=== PATIENT | female | born 1970 | race American Indian/Alaskan Native ===

== ENCOUNTER 2018-11-30 04:38 | Emergency (ER) | payer MEDICAID ==
[2018-11-30] MEDS ORDERED: HumuLIN R IV ONE (06:21)
[2018-11-30] MEDS ORDERED: TORADOL IV ONE (06:22)
[2018-11-30] MEDS ORDERED: BENADRYL IV ONE (06:22)
[2018-11-30] MEDS ORDERED: REGLAN IV ONE (06:22)
--- NOTE | 2018-11-30 06:42 | Emergency Department Report ---
ED Headache HPI - General Chief Complaint: Headache Stated Complaint: HEAD AND EYE PAIN LITTLE CHEST PAIN Time Seen by Provider: 11/30/18 06:10 Source: patient Exam Limitations: no limitations - History of Present Illness Initial Comments: 48-year-old female with a past history of morbid obesity, diabetes, GERD, hypertension, arthritis, and elevated cholesterol complaint headache and "a little chest pain". Patient has had a frontal throbbing headache with pain behind both eyes since yesterday morning. Pain is constant but fluctuates in intensity. Pain is increased with sitting straight up decreased with lying flat nausea without vomiting. Denies light sensitivity, blurred vision, focal weakness, focal numbness, or neck pain. No recent head injuries reported. No family history of aneurysms. Patient also states she has a little chest pain only mentioning that she was in the hospital. It is similar to her chronic intermittent chest pain which she is unable to describe to me currently. She is also very vague as to when chest pain occur only seen if she did not have chest pain yesterday. She is unable to characterize pain stating "I don't know" she is unable to tell me how long she's had the pain stating again "I don't know". Pt does have a pmd Allergies/Adverse Reactions: Allergies No Known Allergies Allergy (Verified 02/22/14 23:58) Home Medications: Ambulatory Orders Allopurinol [Zyloprim] 300 mg PO BIDAC 02/22/14 Cyclobenzaprine [Flexeril 10 MG TAB] 1 tab PO TID PRN 02/22/14 metFORMIN [Glucophage] 1,000 mg PO BID #60 tablet 02/23/14 Carvedilol [Coreg] 6.25 mg PO BID 11/22/16 Furosemide [Lasix TAB] 40 mg PO Q12H 11/22/16 amLODIPine [Norvasc] 10 mg PO QDAY 11/22/16 Aspirin EC 81 mg PO QDAY #30 tablet. 11/23/16 AtorvaSTATin [Lipitor] 40 mg PO QHS #30 tab 11/23/16 Famotidine [Pepcid] 20 mg PO BID tablet 11/23/16 Insulin NPH/Regular [NovoLIN 70/30] 10 unit SUB-Q BIDDIAB #1 vial 11/23/16 HYDROcodone/APAP 5-325 [[place] 5-325 mg TAB] 1 tab PO Q6H PRN #15 tablet 11/30/18 Ibuprofen [Motrin] 800 mg PO Q8HR PRN #30 tablet 11/30/18 ED Review of Systems ROS: Stated complaint: HEAD AND EYE PAIN LITTLE CHEST PAIN Other details as noted in HPI Comment: All other systems reviewed and negative ED Past Medical Hx - Past Medical History Hx Hypertension: Yes Hx Diabetes: Yes Hx GERD: Yes Hx Arthritis: Yes Additional medical history: obesity. Elevated cholesterol - Social History Smoking Status: Never Smoker Substance Use Type: None - Medications Home Medications: Home Medications Medication Instructions Recorded Confirmed Last Taken Type Allopurinol [Zyloprim] 300 mg PO BIDAC 02/22/14 11/22/16 Unknown History Cyclobenzaprine [Flexeril 10 MG 1 tab PO TID PRN 02/22/14 11/22/16 Unknown History TAB] metFORMIN [Glucophage] 1,000 mg PO BID #60 tablet 02/23/14 11/22/16 Unknown Rx Carvedilol [Coreg] 6.25 mg PO BID 11/22/16 11/22/16 Unknown History Furosemide [Lasix TAB] 40 mg PO Q12H 11/22/16 11/22/16 Unknown History amLODIPine [Norvasc] 10 mg PO QDAY 11/22/16 11/22/16 Unknown History Aspirin EC 81 mg PO QDAY #30 tablet. 11/23/16 Unknown Rx AtorvaSTATin [Lipitor] 40 mg PO QHS #30 tab 11/23/16 Unknown Rx Famotidine [Pepcid] 20 mg PO BID tablet 11/23/16 Unknown Rx Insulin NPH/Regular [NovoLIN 70/30] 10 unit SUB-Q BIDDIAB #1 vial 11/23/16 Unknown Rx HYDROcodone/APAP 5-325 [[place] 1 tab PO Q6H PRN #15 tablet 11/30/18 Unknown Rx 5-325 mg TAB] Ibuprofen [Motrin] 800 mg PO Q8HR PRN #30 tablet 11/30/18 Unknown Rx ED Physical Exam - General Limitations: No Limitations - Other Other exam information: General: No limitations, patient is alert in no acute distress Head exam: Atraumatic, normocephalic Eyes exam: Normal appearance, pupils equal reactive to light, extraocular movements intact ENT: Moist mucous membrane, normal oropharynx Neck exam: Normal inspection, full range of motion, no meningismus nontender Respiratory exam: Clear to auscultation bilateral, no wheezes, rales, crackles Cardiovascular: Normal rate and rhythm, normal heart sounds Abdomen: Soft, nondistended, and nontender, with normal bowel sounds, no rebound, or guarding Extremity: Full range of motion normal inspection no deformity Back: Normal Inspection, full range of motion, no tenderness Neurologic: Alert, oriented x3, cranial nerves intact, no motor or sensory deficit, [id number] function intact Psychiatric: normal affect, normal mood Skin: Warm, dry, intact ED Course Vital Signs 11/30/18 11/30/18 11/30/18 04:55 05:43 06:30 Temperature 97.9 F 98.3 F Pulse Rate 94 H 91 H Respiratory 18 15 Rate Blood Pressure 144/63 158/84 Blood Pressure 156/68 [Left] O2 Sat by Pulse 97 96 88 Oximetry 11/30/18 11/30/18 11/30/18 07:08 09:35 12:00 Temperature 98.3 F 98.2 F Pulse Rate 96 H 86 86 Respiratory 16 16 16 Rate Blood Pressure Blood Pressure 180/84 151/75 157/61 [Left] O2 Sat by Pulse 100 95 98 Oximetry - Reevaluation(s) Reevaluation #1: 11/30/18 08:27 Initially CAT scan of the head was ordered since patient does not have a history of headaches. Patient is pain-free after Benadryl, Toradol, and Reglan. She has no neurologic deficits. I have a low suspicion for acute life-threatening headache. I discussed with patient that we are unable to do a CAT scan of the head here to her body habitus. I discussed options of discharge with meds since symptoms improved with migraine cocktail versus transfer for CT. Since patient is feeling better without neural deficits is comfortable with going home and outpatient neuro follow-up and declines transfer for ct at this time. She will be observed while receiving IV hydration and repeat troponin and discharge if symptoms and trop remained stable. 11/30/18 10:08 pt states the headache is now coming back. Edil was called earlier and states I cant send pt for ct scan to return to the ED. Will attempt [place] [facility] Additional pain medicine ordered. Reevaluation #2: 11/30/18 14:44 pt [place] [facility] she appears with a ct head scan on disc. I attempted the number recommended to receive the report however no one is answering the phone. I requested for my legal secretary to reach out to try to obtain the ct report. 11/30/18 15:00 I did have Radiologist Dr Schofield provide a wet read by while official report pending so that there was not a delay in diagnosis of an emergent condition. No acute hemorrhage was noted. We are waiting for Radiologist from [facility] [place] provide official report. 11/30/18 15:02 3rd troponin received 11/30/18 15:17 pt remains pain free. 3rd trop neg, no c/o cp in the ed. - Consultations Consultation #1: 11/30/18 10:33 [facility] [place] for stat outpt ct head to return to ed when study is complete ED Medical Decision Making - Lab Data Result diagrams: 11/30/18 06:25 11/30/18 06:25 Lab Results 11/30/18 11/30/18 11/30/18 Range/Units 04:56 06:25 06:25 WBC 9.6 (4.5-11.0) K/mm3 RBC 5.18 H (3.65-5.03) M/mm3 Hgb 11.3 (10.1-14.3) gm/dl Hct 34.3 (30.3-42.9) % MCV 66 L (79-97) fl MCH 22 L (28-32) pg MCHC 33 (30-34) % RDW 18.0 H (13.2-15.2) % Plt Count 425 (140-440) K/mm3 Lymph % (Auto) 27.6 (13.4-35.0) % Yancey % (Auto) 7.9 H (0.0-7.3) % Eos % (Auto) 1.2 (0.0-4.3) % Baso % (Auto) 0.4 (0.0-1.8) % Lymph # 2.7 (1.2-5.4) K/mm3 [place]ancey # 0.8 (0.0-0.8) K/mm3 Eos # 0.1 (0.0-0.4) K/mm3 Baso # 0.0 (0.0-0.1) K/mm3 Seg Neutrophils % 62.9 (40.0-70.0) % Seg Neutrophils # 6.1 (1.8-7.7) K/mm3 PT 12.4 (12.2-14.9) Sec. INR 0.95 (0.87-1.13) APTT 25.3 (24.2-36.6) Sec. Sodium (137-145) mmol/L Potassium (3.6-5.0) mmol/L Chloride (98-107) mmol/L Carbon Dioxide (22-30) mmol/L Anion Gap mmol/L BUN (7-17) mg/dL Creatinine (0.7-1.2) mg/dL Estimated GFR ml/min BUN/Creatinine Ratio % Glucose (65-100) mg/dL POC Glucose 341 H (70-105) Calcium (8.4-10.2) mg/dL Troponin T (0.00-0.029) ng/mL HCG, Qual (Negative) 11/30/18 11/30/18 11/30/18 Range/Units 06:25 06:31 06:49 WBC (4.5-11.0) K/mm3 RBC (3.65-5.03) M/mm3 Hgb (10.1-14.3) gm/dl Hct (30.3-42.9) % MCV (79-97) fl MCH (28-32) pg MCHC (30-34) % RDW (13.2-15.2) % Plt Count (140-440) K/mm3 Lymph % (Auto) (13.4-35.0) % [place]ancey % (Auto) (0.0-7.3) % Eos % (Auto) (0.0-4.3) % Baso % (Auto) (0.0-1.8) % Lymph # (1.2-5.4) K/mm3 Yancey # (0.0-0.8) K/mm3 Eos # (0.0-0.4) K/mm3 Baso # (0.0-0.1) K/mm3 Seg Neutrophils % (40.0-70.0) % Seg Neutrophils # (1.8-7.7) K/mm3 PT (12.2-14.9) Sec. INR (0.87-1.13) APTT (24.2-36.6) Sec. Sodium 136 L (137-145) mmol/L Potassium 3.8 (3.6-5.0) mmol/L Chloride 98.4 (98-107) mmol/L Carbon Dioxide 25 (22-30) mmol/L Anion Gap 16 mmol/L BUN 28 H (7-17) mg/dL Creatinine 1.3 H (0.7-1.2) mg/dL Estimated GFR 53 ml/min BUN/Creatinine Ratio 22 % Glucose 374 H (65-100) mg/dL POC Glucose 374 H (70-105) Calcium 8.1 L (8.4-10.2) mg/dL Troponin T < 0.010 (0.00-0.029) ng/mL HCG, Qual Negative (Negative) 11/30/18 11/30/18 Range/Units 08:22 09:29 WBC (4.5-11.0) K/mm3 RBC (3.65-5.03) M/mm3 Hgb (10.1-14.3) gm/dl Hct (30.3-42.9) % MCV (79-97) fl MCH (28-32) pg MCHC (30-34) % RDW (13.2-15.2) % Plt Count (140-440) K/mm3 Lymph % (Auto) (13.4-35.0) % Yancey % (Auto) (0.0-7.3) % Eos % (Auto) (0.0-4.3) % Baso % (Auto) (0.0-1.8) % Lymph # (1.2-5.4) K/mm3 [place]ancey # (0.0-0.8) K/mm3 Eos # (0.0-0.4) K/mm3 Baso # (0.0-0.1) K/mm3 Seg Neutrophils % (40.0-70.0) % Seg Neutrophils # (1.8-7.7) K/mm3 PT (12.2-14.9) Sec. INR (0.87-1.13) APTT (24.2-36.6) Sec. Sodium (137-145) mmol/L Potassium (3.6-5.0) mmol/L Chloride (98-107) mmol/L Carbon Dioxide (22-30) mmol/L Anion Gap mmol/L BUN (7-17) mg/dL Creatinine (0.7-1.2) mg/dL Estimated GFR ml/min BUN/Creatinine Ratio % Glucose (65-100) mg/dL POC Glucose 246 H (70-105) Calcium (8.4-10.2) mg/dL Troponin T < 0.010 (0.00-0.029) ng/mL HCG, Qual (Negative) - EKG Data -: EKG Interpreted by Ia EKG shows normal: sinus rhythm, axis (qrs 16), QRS complexes (qrsd 84), ST-T waves (no stemi) Rate: normal (91) - EKG Data When compared to previous EKG there are: no significant change (compared to 11/22/16) - Radiology Data Radiology results: report reviewed (ct head) [place] [facility] Impression: 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 It is likely subacute to chronic. No other acute abnormality identified. - Medical Decision Making chronic chest pain without acute chest pain with unchanged ekg and neg trop x 3 headache improved with ed tx with ct head [place] [facility] plan to d/c home with pain meds for headache Patient did have mild hyperglycemia without signs of DKA which improved with IV hydration and insulin - Differential Diagnosis migrine, rodriguez, ich, brain mass Critical Care Time: No Critical care attestation.: If time is entered above; I have spent that time in minutes in the direct care of this critically ill patient, excluding procedure time. ED Disposition Clinical Impression: Morbid obesity, Chronic hypertension, Acute headache, Chronic chest pain Disposition: DC- TO HOME OR SELFCARE Is pt being admited?: No Does the pt Need Aspirin: No Condition: Stable Instructions: Acute Headache (ED), Obesity (ED), Hypertension (ED), Chest Pain (ED) Additional Instructions: Take the medication as prescribed. Follow up with your doctor or the clinic/doctor provided. Return if symptoms worsen as indicated by your discharge instructions Prescriptions: Ibuprofen [Motrin] 800 mg PO Q8HR PRN #30 tablet PRN Reason: Pain, Moderate (4-6) HYDROcodone/APAP 5-325 [[place] 5-325 mg TAB] 1 tab PO Q6H PRN #15 tablet PRN Reason: Pain Referrals: RELL ARITA MD [Staff Physician] - 3-5 Days PRIMARY CARE, [Primary Care Provider] - 3-5 Days YOHAN PURDY MD [Staff Physician] - 3-5 Days (neurology ) Time of Disposition: 15:25
[2018-11-30 06:47] LABS: Basophils % (Auto) 0.4 % (0.0-1.8); Eosinophils # (Auto) 0.1 K/mm3 (0.0-0.4); Eosinophils % (Auto) 1.2 % (0.0-4.3); Hematocrit 34.3 % (30.3-42.9); Hemoglobin 11.3 gm/dl (10.1-14.3); Lymphocytes # (Auto) 2.7 K/mm3 (1.2-5.4); Lymphocytes % (Auto) 27.6 % (13.4-35.0); Mean Corpuscular HGB Conc 33 % (30-34); Monocytes # (Auto) 0.8 K/mm3 (0.0-0.8); Monocytes % (Auto) 7.9 % (0.0-7.3); Platelet Count 425 K/mm3 (140-440); Red Blood Count 5.18 M/mm3 (3.65-5.03)
[2018-11-30 06:48] LABS: Mean Corpuscular Volume 66 fl (79-97)
[2018-11-30 06:56] LABS: INR 0.95 (0.87-1.13)
[2018-11-30 06:57] LABS: Partial Thromboplastin Time 25.3 Sec. (24.2-36.6)
[2018-11-30 07:14] LABS: BUN/Creatinine Ratio 22; Blood Urea Nitrogen 28 mg/dL (7-17); Calcium 8.1 mg/dL (8.4-10.2); Hemolysis Index 14
[2018-11-30] MEDS ORDERED: NACL 0.9% 1000 ML 1,000 ML IV ONE (08:08)
[2018-11-30] MEDS ORDERED: DILAUDID IV ONE (10:09)
[2018-11-30] MEDS ORDERED: ZOFRAN IV ONE (10:09)
[2018-11-30 16:00] VITALS: BP 165/83
== END 2018-11-30 16:04 | disposition home or self-care (01) ==
LOC: ED 04:38
DX: I10 Essential (primary) hypertension (principal); R07.89 Other chest pain; G89.29 Other chronic pain; E66.01 Morbid (severe) obesity due to excess calories; E11.9 Type 2 diabetes mellitus without complications; K21.9 Gastro-esophageal reflux disease without esophagitis; M19.90 Unspecified osteoarthritis, unspecified site; E78.00 Pure hypercholesterolemia, unspecified; Z79.899 Other long term (current) drug therapy; Z68.45 Body mass index [BMI] 70 or greater, adult
CPT/HCPCS: 36415; 80048; 82962; 84484; 84703; 85025; 85610; 85730; 93005; 93010; 96374; 96375; 99285; J1170; J1200; J1885; J2405; J2765; J7030; J1815

== ENCOUNTER 2019-01-20 15:10 | Emergency (ER) | payer MEDICAID ==
--- NOTE | 2019-01-20 15:56 | Event Note ---
ED Screening Note Date of service: 01/20/19 Time: 15:55 ED Screening Note: 48 y/o female comes in for dizziness and elevated blood sugar. Patient does admit to taking Flexeril this morning. Patient is on insulin and oral agents. This initial assessment/diagnostic orders/clinical plan/treatment(s) is/are subject to change based on patients health status, clinical progression and re- assessment by fellow clinical providers in the ED. Further treatment and workup at subsequent clinical providers discretion. Patient/guardian urged not to elope from the ED as their condition may be serious if not clinically assessed and managed. Initial orders include:
[2019-01-20 16:47] LABS: Basophils % (Auto) 0.4 % (0.0-1.8); Eosinophils % (Auto) 0.3 % (0.0-4.3); Hematocrit 39.9 % (30.3-42.9); Hemoglobin 12.9 gm/dl (10.1-14.3); Lymphocytes # (Auto) 2.9 K/mm3 (1.2-5.4); Lymphocytes % (Auto) 32.4 % (13.4-35.0); Mean Corpuscular HGB Conc 32 % (30-34); Monocytes # (Auto) 0.6 K/mm3 (0.0-0.8); Monocytes % (Auto) 6.1 % (0.0-7.3); Platelet Count 528 K/mm3 (140-440); Red Blood Count 6.06 M/mm3 (3.65-5.03); Red Cell Distribution Width 17.8 % (13.2-15.2)
[2019-01-20 16:48] LABS: Mean Corpuscular Volume 66 fl (79-97)
[2019-01-20 17:18] LABS: Albumin 2.9 g/dL (3.9-5); Calcium 9.5 mg/dL (8.4-10.2)
[2019-01-20] MEDS ORDERED: NACL 0.9% 1000 ML 1,000 ML IV ONE (18:15)
[2019-01-20] MEDS ORDERED: HumuLIN R IV ONE (18:15)
[2019-01-20 19:17] LABS: Bacteria,Urine 1+ /HPF (Negative); Bilirubin,Urine NEG (Negative); Blood,Urine LG (Negative); Color,Urine Yellow (Yellow); Mucus,Urine FEW /HPF; Urobilinogen,Urine < 2.0 mg/dL (<2.0)
[2019-01-20 19:21] LABS: Protein,Urine >500 mg/dL (Negative); RBC,Urine > 182.0 /HPF (0.0-6.0)
--- NOTE | 2019-01-20 19:29 | Emergency Department Report ---
HPI - General Chief Complaint: Hyperglycemia Time Seen by Provider: 01/20/19 15:52 - HPI HPI: 48-year-old active female presents to the emergency department with the complaint of some lightheadedness/dizziness, hyperglycemia and nausea. The patient was outside at a yard sale held by her scientology. Despite the fact that she was underneath a tent, she was still out in the heat for an extended period of time. She then had to sit down in a chair so that she would not pass out. Patient does say that she's been having some issues recently with blood sugar control. She is on glipizide 5 mg and Lantus 25 units at night, and Humulin and 50 units twice daily. She has a past medical history of arthritis, diabetes, GERD, hypertension, high cholesterol and sleep apnea. She did not take anything for her symptoms prior to arrival today. Her primary care physician is Dr. Fournier. ED Past Medical Hx - Past Medical History Hx Hypertension: Yes Hx Diabetes: Yes Hx GERD: Yes Hx Arthritis: Yes Additional medical history: obesity. Elevated cholesterol - Surgical History Past Surgical History?: No - Social History Smoking Status: Unknown if ever smoked - Medications Home Medications: Home Medications Medication Instructions Recorded Confirmed Last Taken Type Allopurinol [Zyloprim] 300 mg PO BIDAC 02/22/14 11/22/16 Unknown History Cyclobenzaprine [Flexeril 10 MG 1 tab PO TID PRN 02/22/14 11/22/16 Unknown History TAB] metFORMIN [Glucophage] 1,000 mg PO BID #60 tablet 02/23/14 11/22/16 Unknown Rx Carvedilol [Coreg] 6.25 mg PO BID 11/22/16 11/22/16 Unknown History Furosemide [Lasix TAB] 40 mg PO Q12H 11/22/16 11/22/16 Unknown History amLODIPine [Norvasc] 10 mg PO QDAY 11/22/16 11/22/16 Unknown History Aspirin EC [Halfprin EC] 81 mg PO QDAY #30 tablet. 11/23/16 Unknown Rx AtorvaSTATin [Lipitor] 40 mg PO QHS #30 tab 11/23/16 Unknown Rx Famotidine [Pepcid] 20 mg PO BID tablet 11/23/16 Unknown Rx Insulin NPH/Regular [NovoLIN 70/30] 10 unit SUB-Q BIDDIAB #1 vial 11/23/16 Unknown Rx HYDROcodone/APAP 5-325 [[place] 1 tab PO Q6H PRN #15 tablet 11/30/18 Unknown Rx 5-325 mg TAB] Ibuprofen [Motrin] 800 mg PO Q8HR PRN #30 tablet 11/30/18 Unknown Rx Nitrofurantoin [place]/M-Cryst 100 mg PO Q12HR #14 capsule 01/20/19 Unknown Rx [Macrobid CAP] ED Review of Systems ROS: Stated complaint: DIZZINESS/NAUSEA/HYPERGLYCEMIA Other details as noted in HPI Constitutional: denies: chills, fever Eyes: denies: eye pain, vision change ENT: denies: ear pain, throat pain Respiratory: denies: cough, shortness of breath Cardiovascular: denies: chest pain, palpitations Gastrointestinal: abdominal pain (for three days but currently resolved), nausea. denies: vomiting Genitourinary: denies: dysuria, discharge Musculoskeletal: myalgia. denies: joint swelling Skin: denies: rash, lesions Neurological: other (dizziness, lightheaded). denies: headache Physical Exam - Physical Exam Vital Signs: Vital Signs 01/20/19 01/20/19 01/20/19 16:10 18:28 18:53 Temperature 98.7 F 97.7 F Pulse Rate 111 H 90 Respiratory 18 16 16 Rate Blood Pressure 113/53 Blood Pressure 110/68 [Left] O2 Sat by Pulse 93 97 97 Oximetry Physical Exam: GENERAL: The patient is well-developed well-nourished. HENT: Normocephalic. Atraumatic. Patient has moist mucous membranes. EYES: Extraocular motions are intact. Pupils equally reactive to light bilaterally. NECK: Supple. Trachea is midline. CHEST/LUNGS: Clear to auscultation. There is no respiratory distress noted. HEART/CARDIOVASCULAR: Regular. There is no tachycardia. There is no murmur. ABDOMEN: Abdomen is soft, nontender. Patient has normal bowel sounds. Extreme morbid obesity. SKIN: Skin is warm and dry. NEURO: The patient is awake, alert, and oriented. The patient is cooperative. The patient has no focal neurologic deficits. The patient has normal speech. Cranial nerves II through XII grossly intact. MUSCULOSKELETAL: There is no tenderness or deformity. There is no evidence of acute injury. ED Course Vital Signs 01/20/19 01/20/19 01/20/19 16:10 18:28 18:53 Temperature 98.7 F 97.7 F Pulse Rate 111 H 90 Respiratory 18 16 16 Rate Blood Pressure 113/53 Blood Pressure 110/68 [Left] O2 Sat by Pulse 93 97 97 Oximetry ED Medical Decision Making - Lab Data Result diagrams: 01/20/19 16:20 01/20/19 16:20 - EKG Data -: EKG Interpreted by Co EKG shows normal: sinus rhythm, axis (left axis deviation), intervals, QRS complexes (LVH), ST-T waves Rate: normal - EKG Data When compared to previous EKG there are: no significant change Interpretation: unchanged when compared t (11/30/18), LVH - Radiology Data Radiology results: report reviewed ULTRASOUND RENAL INDICATION: BAUTISTA. COMPARISON: No relevant prior imaging study available. FINDINGS: RIGHT KIDNEY: Size: 12.1 cm. Echogenicity: Normal. Cortical thickness: Normal. Hydronephrosis: None. Cyst or mass: None. Stones: None. LEFT KIDNEY: Size: 12.8 cm. Echogenicity: Normal. Cortical thickness: Normal. Hydronephrosis: None. Cyst or mass: None. Stones: None. Urinary Bladder: No significant abnormality. Free Fluid: None. Additional Findings: None. IMPRESSION 1. No acute sonographic abnormality of the kidneys. - Medical Decision Making This patient presents initially with the complaint of some dizziness and lightheadedness after being outside at a yard sale for a few hours. On examination she does not appear to have any focal, motor or sensory deficits in her cranial nerves are intact. Vital signs were stable throughout her ED course including being afebrile. As part of the patient's workup, she was found to have hypoglycemia with a blood sugar of 360. She does not appear in diabetic ketoacidosis as there is no venous acidosis or elevated anion gap. Initially I gave an order to give the patient some insulin, however the patient had been at our facility for a few hours and an Accu-Chek showed the blood sugar was down to about 265. The insulin order was canceled and the patient was just given an IV bolus of normal saline. The patient was found to have some renal insufficiency with a creatinine of 1.6 and a GFR of 42. This is decreased from the patient's last visit a few months ago in which she had a creatinine of 1.3 and a GFR of 5 3 at that time. The patient is making normal amounts of urine. She does complain of some dysuria and a urinalysis does show a significant urinary tract infection, as well as moderate to severe hematuria. Patient denies being on her menstrual cycle. We initiated treatment for the UTI with a IV dose of Rocephin. The patient had a renal ultrasound bilaterally for evaluation of her acute kidney injury and renal insufficiency but it resulted as no acute process or any obvious abnormalities. The patient was reevaluated multiple times over multiple hours and says she is feeling greatly improved from her initial dizziness and lightheadedness. The patient does not appear to require admission or have any emergent condition regarding her hyperglycemia or her renal insufficiency. We discussed dietary and lifestyle changes including staying away from foods are high in sugar, carbohydrates and starches and keeping a blood sugar log. Her hyperglycemia may also be secondary to her urinary tract infection. She will follow up with primary care. She has been given a referral for nephrology for her acute kidney injury, and a referral for urology for the hematuria. She will return to the emergency Department with any worsening of her symptoms or any acute distress. - Differential Diagnosis DKA, HHNK, dysrhythmia, electrolyte abnormalities Critical Care Time: No Critical care attestation.: If time is entered above; I have spent that time in minutes in the direct care of this critically ill patient, excluding procedure time. ED Disposition Clinical Impression: Hyperglycemia, Renal insufficiency, Dizziness UTI (urinary tract infection) Qualifiers: Urinary tract infection type: acute cystitis Hematuria presence: with hematuria Qualified Code(s): N30.01 - Acute cystitis with hematuria Hematuria Qualifiers: Hematuria type: benign essential microscopic Qualified Code(s): R31.1 - Benign essential microscopic hematuria Disposition: DC- TO HOME OR SELFCARE Is pt being admited?: No Condition: Stable Instructions: Urinary Tract Infection in Women (ED), Acute Hematuria (ED), Lightheadedness (ED), Dizziness (ED), Diabetic Hyperglycemia (ED), Impaired Kidney Function (ED) Additional Instructions: Please follow-up with your primary care physician in the next few days. I am giving him a referral for a local foundry manager/kidney doctor, Dr. Millan, to follow up regarding your decreased kidney function found on laboratory testing today. I have also give you a referral for a local urologist, Dr. Bucio, to follow up regarding the blood found in your urine. Take the antibiotics as prescribed. Avoid any anti-inflammatories such as ibuprofen, Aleve, Naprosyn, Advil. Try and stay away from foods that are high in sugar, carbohydrates and starches to help with your diabetes. Keep a blood sugar log. Return to the emergency Department with any worsening of your symptoms or any acute distress. Prescriptions: Nitrofurantoin [place]/M-Cryst [Macrobid CAP] 100 mg PO Q12HR #14 capsule Referrals: MELINA FOURNIER FNP [Primary Care Provider] - 2-3 Days KAMILA WEI MD [Staff Physician] - 2-3 Days KASSIE BUCIO MD [Staff Physician] - 2-3 Days Time of Disposition: 21:39
[2019-01-20] MEDS ORDERED: ROCEPHIN/NS 1 GM/50 ML 1 GM/50 ML BAG IV ONE (19:48)
--- NOTE | 2019-01-20 20:47 | Ultrasound Report ---
ULTRASOUND RENAL INDICATION: BAUTISTA. COMPARISON: No relevant prior imaging study available. FINDINGS: RIGHT KIDNEY: Size: 12.1 cm. Echogenicity: Normal. Cortical thickness: Normal. Hydronephrosis: None. Cyst or mass: None. Stones: None. LEFT KIDNEY: Size: 12.8 cm. Echogenicity: Normal. Cortical thickness: Normal. Hydronephrosis: None. Cyst or mass: None. Stones: None. Urinary Bladder: No significant abnormality. Free Fluid: None. Additional Findings: None. IMPRESSION 1. No acute sonographic abnormality of the kidneys. Signer Name: Lee Santana MD Signed: 01/20/2019 8:43 PM Workstation Name: [id number]
[2019-01-20 22:19] VITALS: BP 149/75
== END 2019-01-20 22:30 | disposition home or self-care (01) ==
LOC: ED 15:10
DX: N39.0 Urinary tract infection, site not specified (principal); E11.65 Type 2 diabetes mellitus with hyperglycemia; N28.9 Disorder of kidney and ureter, unspecified; R42 Dizziness and giddiness; I10 Essential (primary) hypertension; K21.9 Gastro-esophageal reflux disease without esophagitis; M19.90 Unspecified osteoarthritis, unspecified site; E78.00 Pure hypercholesterolemia, unspecified; E66.9 Obesity, unspecified; Z68.45 Body mass index [BMI] 70 or greater, adult; G47.30 Sleep apnea, unspecified; Z79.4 Long term (current) use of insulin; Z79.82 Long term (current) use of aspirin; Z79.84 Long term (current) use of oral hypoglycemic drugs
CPT/HCPCS: 36415; 76770; 80053; 81001; 82805; 82962; 84443; 85025; 93005; 93010; 96365; 99284; J0696; J7030

== ENCOUNTER 2019-05-25 09:30 | Emergency (ER) | payer MEDICAID ==
[2019-05-25] MEDS ORDERED: METOCLOPRAMIDE 10 MG/2 ML INJ IV ONE (10:36)
[2019-05-25] MEDS ORDERED: MORPHINE 4 MG/1 ML INJ IV ONE (10:36)
--- NOTE | 2019-05-25 10:42 | Emergency Department Report ---
HPI - General Chief Complaint: Neuro Symptoms/Deficit Time Seen by Provider: 05/25/19 10:04 - HPI HPI: 48-year-old female presents to the emergency department with a complaint of some dizziness and a headache. The patient says that she had the dizziness last night and thought it was her vertigo. However she woke up this morning with a generalized headache, some left-sided facial numbness and felt like she was slurring her words. Her difficulty with speech has since resolved which she still feels that the left side of the face feels numb. She has not taken anything for her symptoms prior to arrival. She has a past medical histo ry of hypertension, insulin-dependent diabetes and a previous TIA. She was found by EMS to have hypertension with a systolic blood pressure of about 200 and a blood sugar greater than 500. Her primary care physician is a Dr. Fournier. She denies any tobacco or illicit drug use. ED Past Medical Hx - Past Medical History Previous Medical History?: Yes Hx Hypertension: Yes Hx Diabetes: Yes Hx GERD: Yes Hx Arthritis: Yes Additional medical history: obesity. elevated cholesterol. vertigo - Surgical History Past Surgical History?: No - Social History Smoking Status: Never Smoker Substance Use Type: None - Medications Home Medications: Home Medications Medication Instructions Recorded Confirmed Last Taken Type Cyclobenzaprine [Flexeril 10 MG 1 tab PO TID PRN 02/22/14 11/22/16 Unknown History TAB] allopurinoL [Zyloprim] 300 mg PO BIDAC 02/22/14 11/22/16 Unknown History metFORMIN [Glucophage] 1,000 mg PO BID #60 tablet 02/23/14 11/22/16 Unknown Rx Furosemide [Lasix TAB] 40 mg PO Q12H 11/22/16 11/22/16 Unknown History amLODIPine 10 mg PO QDAY 11/22/16 11/22/16 Unknown History carvediloL [Coreg] 6.25 mg PO BID 11/22/16 11/22/16 Unknown History Aspirin EC [Halfprin EC] 81 mg PO QDAY #30 tablet. 11/23/16 Unknown Rx AtorvaSTATin [Lipitor] 40 mg PO QHS #30 tab 11/23/16 Unknown Rx Famotidine [Pepcid] 20 mg PO BID tablet 11/23/16 Unknown Rx Insulin NPH/Regular [NovoLIN 70/30] 10 unit SUB-Q BIDDIAB #1 vial 11/23/16 Unknown Rx HYDROcodone/APAP 5-325 [[place] 1 tab PO Q6H PRN #15 tablet 11/30/18 Unknown Rx 5-325 mg TAB] Ibuprofen [Motrin] 800 mg PO Q8HR PRN #30 tablet 11/30/18 Unknown Rx Nitrofurantoin [place]/M-Cryst 100 mg PO Q12HR #14 capsule 01/20/19 Unknown Rx [Macrobid CAP] ED Review of Systems ROS: Stated complaint: HIGH BLOOD SUGAR Other details as noted in HPI Comment: All other systems reviewed and negative Constitutional: denies: chills, fever Eyes: denies: eye pain, vision change ENT: denies: ear pain, throat pain Respiratory: denies: cough, shortness of breath Cardiovascular: denies: chest pain, palpitations Gastrointestinal: denies: abdominal pain, vomiting Genitourinary: denies: dysuria, discharge Musculoskeletal: denies: back pain, arthralgia Skin: denies: rash, lesions Neurological: headache, numbness. denies: weakness Physical Exam - Physical Exam Vital Signs: Vital Signs 05/25/19 05/25/19 10:03 10:08 Temperature 97.7 F Pulse Rate 91 H 94 H Respiratory 13 13 Rate Blood Pressure 166/86 Blood Pressure 166/86 [Right] O2 Sat by Pulse 96 99 Oximetry Physical Exam: GENERAL: The patient is well-developed well-nourished. HEENT: Normocephalic. Atraumatic. Patient has moist mucous membranes. EYES: Extraocular motions are intact. Pupils equal reactive to light bilaterally. No nystagmus. NECK: Supple. Trachea is midline. CHEST/LUNGS: Clear to auscultation. There is no respiratory distress noted. HEART/CARDIOVASCULAR: Regular. There is no tachycardia. ABDOMEN: Abdomen is soft, nontender. Patient has normal bowel sounds. Severe morbid obesity. SKIN: Skin is warm and dry. NEURO: The patient is awake, alert, and oriented. The patient is cooperative. There are no motor deficits. Subjective decreased sensation to the left side of the face, arm and leg when compared to the right side. The patient has normal speech. Cranial nerves II through XII grossly intact. MUSCULOSKELETAL: There is no tenderness or deformity. There is no evidence of acute injury. ED Course Vital Signs 05/25/19 05/25/19 10:03 10:08 Temperature 97.7 F Pulse Rate 91 H 94 H Respiratory 13 13 Rate Blood Pressure 166/86 Blood Pressure 166/86 [Right] O2 Sat by Pulse 96 99 Oximetry - Reevaluation(s) Reevaluation #1: 05/25/19 11:26 The patient regarding the fact that we are unable to do a CT scan of the head at this time secondary to her body habitus. We discussed possibility of transfer for the CT scan to be performed. However the patient says at this time, and without any treatment, that she has no headache. 0 out of 10. The patient still complains of some mild facial numbness. Through shared decision making, we have decided to treat her hyperglycemia, give some medication for chronic leg pain, treat her BP and then we will re-evaluated for the need for transfer. Reevaluation #2: Patient does not appear to be in diabetic ketoacidosis. She's been reevaluated multiple times and her headache has not returned. Patient says that she does not feel well after receiving the low-dose morphine but cannot described the symptoms. We once again had a conversation regarding my inability to get a CT scan of the head done. The patient says that she does not want to be transferred to another facility for the CT scan to be done. Given her lack of headache, low NIH score and otherwise nonspecific symptoms, I feel that this is reasonable. However the patient does understand the risks of not getting a CT scan done including delayed diagnosis. I spoke with the hospitalist, Dr. Gonzalez, regarding admission to the hospital. He is going to come to the emergency department to evaluate patient for further disposition. 05/25/19 12:51 ED Medical Decision Making - Lab Data Result diagrams: 05/25/19 10:43 05/25/19 10:43 - Medical Decision Making This patient presents to the emergency department after having some nonspecific dizziness and a headache. She had some subjective slurred speech that resolved prior to arrival. She also complains of some subjective decreased sensation to the left side of the face, arm and leg. She continues to complain of this decreased sensation on physical examination and this gives her a 1 on the NIH stroke scale. I had multiple discussions with the patient about the fact that her obese habitus will not allow us to do a CT scan of the head. We also had a discussion about the possibility of a transfer to another facility to try and get the scan done. However the patient had a resolution of her headache, down to 0 out of 10, without any medication or treatment. Her only neurological complaint or deficit is the subjective decreased sensation. Given this, I do not have a high suspicion for any emergent life-threatening condition.the patient's labs show hyperglycemia with a blood sugar of 375 but there is no venous acidosis, significant elevation in her anion gap and she does not appear diabetic ketoacidosis. She was given IV insulin upon reevaluation the blood sugar has come down. It is my plan for the patient to be admitted to the hospital for further evaluation and treatment. The hospitalist, Dr. Gonzalez, was contacted and will see the patient for further disposition. - Differential Diagnosis CVA, TIA, DKA, HHNK Critical Care Time: No Critical care attestation.: If time is entered above; I have spent that time in minutes in the direct care of this critically ill patient, excluding procedure time. ED Disposition Clinical Impression: Numbness on left side, Obesity, Diabetes Disposition: OP ADMIT IP TO THIS HOSP Is pt being admited?: Yes Condition: Stable Referrals: PRIMARY CARE, [Referring] - 3-5 Days Time of Disposition: 17:58 - Assessment Assessment Interval: Baseline - Level of Consciousness 1a. Level of Consciousness: alert/keenly responsive - LOC Questions 1b. LOC Questions: answers both correctly - LOC Command 1c. LOC Commands: performs tasks correctly - Best Gaze 2. Best Gaze: normal - Visual 3. Visual: no visual loss - Facial Palsy 4. Facial Palsy: normal symmetrical movement - Motor Arm 5a. Motor Arm Left: no drift 5b. Motor Arm Right: no drift - Motor Leg 6a. Motor Leg Left: no drift 6b. Motor Leg Right: no drift - Limb Ataxia 7. Limb Ataxia: absent - Sensory 8. Sensory: mild/moderate sensory loss - Best Language 9. Best Language: no aphasia - Dysarthria 10. Dysarthria: normal - Extinction and Inattention 11. Extinction/Inattention: no abnormality - Scoring Total Score: 1 Stroke Severity: Minor Stroke
[2019-05-25 10:55] LABS: Basophils # (Auto) 0.1 K/mm3 (0.0-0.1); Basophils % (Auto) 0.5 % (0.0-1.8); Eosinophils # (Auto) 0.1 K/mm3 (0.0-0.4); Eosinophils % (Auto) 0.6 % (0.0-4.3); Hematocrit 35.7 % (30.3-42.9); Hemoglobin 11.7 gm/dl (10.1-14.3); Lymphocytes % (Auto) 20.1 % (13.4-35.0); Mean Corpuscular HGB Conc 33 % (30-34); Monocytes # (Auto) 0.7 K/mm3 (0.0-0.8); Monocytes % (Auto) 6.6 % (0.0-7.3); Platelet Count 444 K/mm3 (140-440); Red Cell Distribution Width 17.4 % (13.2-15.2)
[2019-05-25 10:58] LABS: Mean Corpuscular Volume 67 fl (79-97)
[2019-05-25 11:21] LABS: Alanine Aminotransferase 11 units/L (7-56); Albumin 2.6 g/dL (3.9-5); BUN/Creatinine Ratio 17; Blood Urea Nitrogen 15 mg/dL (7-17); Calcium 8.7 mg/dL (8.4-10.2); Hemolysis Index 15
[2019-05-25] MEDS ORDERED: INSULIN REGULAR, HUMAN 100 UNITS/1 ML IV ONE (11:59)
[2019-05-25 12:17] LABS: Bilirubin,Urine NEG (Negative); Blood,Urine SM (Negative); Color,Urine Straw (Yellow); Urobilinogen,Urine < 2.0 mg/dL (<2.0)
[2019-05-25 12:25] LABS: Protein,Urine >500 mg/dL (Negative)
--- NOTE | 2019-05-25 15:07 | Event Note ---
Date: 05/25/19 Morbid Obesity No TIA Uncontrolled Diabetes Patient counselled about Insulin dosage Increase insulin dosage by 5 units in AM and pm
[2019-05-25 17:20] VITALS: BP 143/74
== END 2019-05-25 18:00 | disposition admitted as inpatient to this hospital (09) ==
LOC: ED 09:30
DX: R42 Dizziness and giddiness (principal); R51 Headache; R20.0 Anesthesia of skin; I10 Essential (primary) hypertension; E11.9 Type 2 diabetes mellitus without complications; K21.9 Gastro-esophageal reflux disease without esophagitis; M19.90 Unspecified osteoarthritis, unspecified site
CPT/HCPCS: 36415; 36569; 80053; 81001; 82010; 82805; 82962; 84443; 84484; 84703; 85025; 96374; 96375; 99284; J2270; J2765; J1815